=== PATIENT | female | born 1960 | race Caucasian/White ===

== ENCOUNTER 2022-01-10 09:58 | Outpatient (CLI) | payer BC, SELFPAY ==
--- NOTE | ~2022-01-10 | DEXA_ITS ---
Bone Density Report Name: GORDO GUNN Age: 61 Sex: Female Ethnicity: White Date of : 1960 Indication: postmenopausal; screening for osteoporosis; height loss; cancer; Referring Provider: JULIANA DAIVD Study: Bone densitometry was performed. Exam Date: January 10, 2022 Accession number: [id number] Bone Density: Region BMD T-score Z-score Classification AP Spine(L1-L4) 0.861 -1.7 -0.2 Osteopenia Femoral Neck (Left) 0.688 -1.5 -0.1 Osteopenia Total Hip (Left) 0.793 -1.2 -0.2 Osteopenia Femoral Neck (Right) 0.704 -1.3 0.0 Osteopenia Total Hip (Right) 0.766 -1.4 -0.4 Osteopenia Total Hip Mean 0.780 -1.3 -0.3 Osteopenia World Health Organization criteria for BMD impression classify patients as: Normal (T-score at or above -1.0), Osteopenia (T-score between -1.0 and -2.5), or Osteoporosis (T-score at or below -2.5). 10-year Fracture Risk(1): Major Osteoporotic Fracture 7.6% Hip Fracture 0.6% Reported Risk Factors: [place] (), Neck BMD=0.688, BMI=33.7 (1) FRAX(R) Version 3.08. Fracture probability calculated for an untreated patient. Fracture probability may be lower if the patient has received treatment. Clinical Information Provided by Patient: Has used the following medications: Vitamin D, Calcium Has the following medical conditions: Cancer Patient maximum height was 68 Menopause Age: 55 No regular weight bearing exercise Drinks caffeinated beverages Onset of menses at age 15 Number of children 2 Impression: The patient has low bone mass, based on the Total Spine T-score. The patient has an estimated ten-year risk of hip fracture of 0.6% and an estimated ten-year risk of major fracture of 7.6%, based on the WHO FRAX algorithm. Discussion: BONE DENSITY IS LOW AT ONE OR MORE SKELETAL SITES. This patient's lowest T-score is low at one or more skeletal sites. It meets the World Health Organization's (WHO) criteria for ?low bone mass? (T-score between -1.0 and -2.5). The patient's 10-year risk of fracture as calculated by FRAX is less than the threshold where pharmacological therapy is recommended by the National Osteoporosis Foundation (NOF). However, all treatment decisions require clinical judgment and consideration of individual patient factors, including patient preferences, comorbidities, previous drug use, risk factors not captured in the FRAX model (e.g., frailty, falls, vitamin D deficiency, increased bone turnover, interval significant decline in bone density) and possible under or overestimation of fracture risk by FRAX. The patient should follow a healthful lifestyle (good nutrition with adequate calcium and vitamin D, and appropriate weight-bearing exercise). Follow-Up: Consider repeating this study in 2 to 3 years to reassess this patient's status, or sooner
== END 2022-01-10 09:59 | disposition home or self-care (01) ==
PROVIDERS: Visit Provider Internal Medicine Hematology & Oncology
DX: M85.88 Other specified disorders of bone density and structure, other site (principal); M85.852 Other specified disorders of bone density and structure, left thigh; M85.851 Other specified disorders of bone density and structure, right thigh
CPT/HCPCS: 77080

== ENCOUNTER 2024-02-01 09:12 | Outpatient (CLI) | payer BC, SELFPAY ==
--- NOTE | ~2024-02-01 | DEXA_ITS ---
Bone Density Report Name: GORDO GUNN Age: 63 Sex: Female Ethnicity: White Date of : 1960 Indication: osteopenia; Referring Provider: JULIANA DAVID Study: Bone densitometry was performed. Exam Date: February 01, 2024 Accession number: [id number] Bone Density: Region BMD T-score Z-score Classification AP Spine(L1-L4) 0.796 -2.3 -0.6 Osteopenia Femoral Neck (Left) 0.698 -1.4 0.1 Osteopenia Total Hip (Left) 0.856 -0.7 0.4 Normal Femoral Neck (Right) 0.694 -1.4 0.0 Osteopenia Total Hip (Right) 0.836 -0.9 0.3 Normal Total Hip Mean 0.846 -0.8 0.4 Normal World Health Organization criteria for BMD impression classify patients as: Normal (T-score at or above -1.0), Osteopenia (T-score between -1.0 and -2.5), or Osteoporosis (T-score at or below -2.5). 10-year Fracture Risk(1): Major Osteoporotic Fracture 8.0% Hip Fracture 0.7% Reported Risk Factors: [place] (), Neck BMD=0.694, BMI=32.6 (1) FRAX(R) Version 3.08. Fracture probability calculated for an untreated patient. Fracture probability may be lower if the patient has received treatment. Previous Exams: Region Exam Age BMD T-score BMD Change BMD Change Date g/cm2 vs Baseline vs Previous AP Spine (L1-L4) 02/01/2024 63 0.796 -2.3 -0.066 (-7.6%) -0.066 (-7.6%) 01/10/2022 61 0.861 -1.7 Total Hip(Left) 02/01/2024 63 0.856 -0.7 0.063 (7.9%)* 0.063 (7.9%)* 01/10/2022 61 0.793 -1.2 Total Hip(Right) 02/01/2024 63 0.836 -0.9 0.070 (9.1%)* 0.070 (9.1%)* 01/10/2022 61 0.766 -1.4 *Denotes significance at 95% confidence level, LSC for AP Spine = 0.022 g/cm2, LSC for Total Hip = 0.027 g/cm2 Impression: The patient has low bone mass, based on the Total Spine T-score. The patient has an estimated ten-year risk of hip fracture of 0.7% and an estimated ten-year risk of major fracture of 8%, based on the WHO FRAX algorithm. The BMD for the AP Spine (L1-L4) decreased, changing by -7.6% since the last DXA exam. Discussion: BONE DENSITY IS LOW AT ONE OR MORE SKELETAL SITES. This patient's lowest T-score is low at one or more skeletal sites. It meets the World Health Organization's (WHO) criteria for ?low bone mass? (T-score between -1.0 and -2.5). The patient's 10-year risk of fracture as calculated by FRAX is less than the threshold where pharmacological therapy is recommended by the National Osteoporosis Foundation (NOF). However, all treatment decisions require clinical judgment and consideration of individual patient factors, including patient preferences, comorbidities, previous drug use, risk factors not captured in the FRAX model (e.g., frailty, falls, vitamin D deficiency, increased bone turnover, interval significant decline in bone density) and possible under or overestimation of fracture risk by FRAX. The patient should follow a healthful lifestyle (good nutrition with adequate calcium and vitamin D, and appropriate weight-bearing exercise). Follow-Up: Consider repeating this study in 2 years to reassess this patient's status, or sooner if there is some new clinical indication. Reported by: RIC on 02/01/2024 10:01:00 AM. Reviewed, dictated and finalized at location AAkila [email or web address]
== END 2024-02-01 09:13 | disposition home or self-care (01) ==
LOC: ANHIMG 09:15
PROVIDERS: PCP Family Medicine; Visit Provider Internal Medicine Hematology & Oncology
DX: M85.88 Other specified disorders of bone density and structure, other site (principal); M85.852 Other specified disorders of bone density and structure, left thigh; M85.851 Other specified disorders of bone density and structure, right thigh
CPT/HCPCS: 77080